=== PATIENT | male | born 1975 | race Two or more races ===

== ENCOUNTER 2016-12-16 15:26 | Emergency (ER) | payer OTHER ==
[2016-12-16] MEDS ORDERED: HYDROcodone/ACETAMIN 5-325 MG* 1 TAB PO ONE (18:12)
--- NOTE | 2016-12-16 18:48 | RAD ---
INDICATION: Left knee pain after a fall COMPARISON: None TECHNIQUE: 3 view radiograph of the left knee. The sunrise view was not acquired because the patient cannot bend his knee. FINDINGS: The visualized bones are well-corticated and properly aligned. The joint spaces are properly maintained. There is a moderate joint effusion. There is no acute fracture, dislocation or other focal bony abnormality. IMPRESSION: Moderate left-sided joint effusion without radiographically apparent fracture or dislocation. If the patient's symptoms persist, follow-up imaging is recommended.
--- NOTE | 2016-12-16 19:57 | ED ---
Farrukh Milan Rebecca, scribed for Agnieszka Kellogg MD on 12/16/16 at 1811 . Lower Extremity - HPI Summary HPI Summary: Pt is a 41 y/o M BIBA from [facility] who presents to ED c /o L knee pain. Pain began suddenly 2 days ago, on Friday night, and has been constant since onset. Reports "it snapped sideways" and that he fell sideways on the knee, with pain beginning immediately upon impact. Pain is discrete to the L knee without radiation. Pain is currently severe, ranked 9/10 and characterized as sharp. Sx aggravated by movement, alleviated by nothing. Denies LOC. PMHx L knee injuries. - History of Current Complaint Chief Complaint: EDExtremityLower Stated Complaint: LT KNEE INJURY Time Seen by Provider: 12/16/16 18:03 Hx Obtained From: Patient Mechanism Of Injury: Fall From A Standing Position Onset of Pain: Immediate, Prior to Arrival Onset/Duration: Still Present - 2 days Severity Initially: Moderate Severity Currently: Severe Pain Intensity: 9 Pain Scale Used: 0-10 Numeric Timing: Constant Location: Is Discrete @ - L knee Character Of Pain: Sharp Associated Signs And Symptoms: Positive: Negative Aggravating Factor(s): Movement Alleviating Factor(s): Nothing Able to Bear Weight: Yes PMH/Surg Hx/FS Hx/Imm Hx Endocrine/Hematology History: Denies: Hx Diabetes Musculoskeletal History: Reports: Other Musculoskeletal History - L knee injuries Neurological History: Reports: Hx Migraine Infectious Disease History: No Infectious Disease History: Denies: Traveled Outside the [place] in Last 30 Days - Family History Known Family History: Negative: Cardiac Disease, Hypertension, Diabetes - Social History Alcohol Use: None Hx Substance Use: No Substance Use Type: Reports: None Hx Tobacco Use: No Smoking Status (MU): Never Smoked Tobacco Review of Systems Positive: Arthralgia - L kne epain s/p fall Neurological: Other - Denies LOC All Other Systems Reviewed And Are Negative: Yes Physical Exam - Summary Physical Exam Summary: General: Well appearing, no pain distress Skin: Warm, Skin Color Reflects Adequate Perfusion, Dry Eyes: EOMI, GISSELL ENT: Pharynx normal, TMs normal Neck: Supple, nontender Respiratory: CTA, breath sounds present, no rhonchi, no wheezes, no rales Cardiovascular: RRR, no murmur, no rub, no gallop Abdomen: Soft, nontender, Non-distended, no guarding, no rebound Bowel: Present Musculoskeletal:No swelling, no edema. Pain in the L knee with ROM. Neuro: Sensory/motor intact, A&Ox3, CN intact 2-12 Psych: Affect/mood appropriate Triage Information Reviewed: Yes Vital Signs On Initial Exam: Initial Vitals Temp Pulse Resp BP Pulse Ox 97.9 F 60 16 134/86 99 12/16/16 15:37 12/16/16 15:37 12/16/16 15:37 12/16/16 15:37 12/16/16 15:37 Vital Signs Reviewed: Yes Diagnostics - Vital Signs Vital Signs Temp Pulse Resp BP Pulse Ox 12/16/16 17:08 97.9 F 55 20 135/90 100 12/16/16 15:39 98.4 F 70 20 134/86 99 12/16/16 15:37 97.9 F 60 16 134/86 99 - Laboratory Lab Statement: Any lab studies that have been ordered have been reviewed, and results considered in the medical decision making process. - Radiology Knee XR Radiology Interpretation Completed By: Radiologist - Moderate left-sided joint effusion without radiographically apparent fracture or dislocation. If the patient's symptoms persist, follow-up imaging is recommended. Re-Evaluation - Re-Evaluation Second Eval Re-Evaluation Time: 20:00 Lower Extremity Course/Dx - Course Course Of Treatment: neg films likely ligamentous strain, pt can't go back to 5 points with a knee immobilizer or with crutches but does need ortho followup and pain meds - Diagnoses Provider Diagnoses: Injury of knee, ligament Discharge - Discharge Plan Condition: Stable Disposition: HOME The documentation as recorded by the Farrukh hdez Rebecca accurately reflects the service I personally performed and the decisions made by me, Agnieszka Kellogg MD.
[2016-12-16 20:39] VITALS: BP 145/70
== END 2016-12-16 20:27 | disposition home or self-care (01) ==
LOC: ED 15:26
DX: S76.102A Unspecified injury of left quadriceps muscle, fascia and tendon, initial encounter (principal); W19.XXXA Unspecified fall, initial encounter; Y93.9 Activity, unspecified; Y92.9 Unspecified place or not applicable
CPT/HCPCS: 99282

== ENCOUNTER 2017-07-24 07:30 | Day surgery (SDC) | payer OTHER ==
[~2017-07-24 07:30] MED LIST: Buffered Lidocaine 0.9% SYRIN* 5 ML/SYR SYRINGE INTRADERM ONE; DiMENhydriNATE IV* 50 MG/ML VIAL IV PUSH PRN; Famotidine IV* 10 MG/ML 2 ML (20 mg) IV ONE; Morphine INJ* 2 MG/ML 1 ML CARPUJECT IV PRN; PROCHLORPERAZINE INJ 5 MG/ML 2 ML VIAL IV PRN; Scopolamine 1.5 mg* PATCH TRANSDERM PRN; fentaNYL* 50 MCG/ML 2 ML VIAL (100 MCG VIAL) IV PRN; oxyCODONE/Acetamin 5/325 MG* TAB PO PRN
[2017-07-24] MEDS ORDERED: Famotidine IV* 10 MG/ML 2 ML (20 mg) ONE (08:47)
[2017-07-24] MEDS ORDERED: ceFAZolin 2 GM PREMIX (*) 2 GM/50 ML BAG IVPB ONE (08:47)
[2017-07-24] MEDS ORDERED: fentaNYL* 50 MCG/ML 2 ML VIAL (100 MCG VIAL) ONE ×2 (09:51→13:05)
[2017-07-24] MEDS ORDERED: KETAMINE HCL* 50 MG/ML 10 ML VIAL ONE (09:51)
[2017-07-24] MEDS ORDERED: Midazolam* 1 MG/ML 2 ML VIAL (2 MG) ONE (09:51)
[2017-07-24] MEDS ORDERED: Bupivacaine 0.25% SDV* 30 ML ONE (10:27)
[2017-07-24] MEDS ORDERED: Propofol* 10 MG/ML 20 ML BTL IV PUSH ONE (13:04)
[2017-07-24] MEDS ORDERED: Lidocaine 2% PF * 5 ML VIAL ONE (13:04)
[2017-07-24] MEDS ORDERED: Ketorolac INJ* 30 MG/ML 1 ML VIAL ONE (13:04)
[2017-07-24] MEDS ORDERED: Dexamethasone IV* 4 MG/ML 1 ML (4 MG) ONE (13:04)
[2017-07-24] MEDS ORDERED: Ondansetron INJ* 2 MG/ML VIAL ONE (13:04)
[2017-07-24] MEDS ORDERED: hydrALAZINE IV* 20 MG/ML VIAL ONE (13:36)
[2017-07-24 14:49] VITALS: BP 128/70
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
[2017-07-27] MEDS ORDERED: Scopolamine PATCH Remove* 1 NOTE MISC PATCH OFF ONE (06:13)
== END 2017-07-24 15:04 | disposition home or self-care (01) ==
LOC: OREAST 07:30
PROVIDERS: ATTEND Orthopaedic Surgery Hand Surgery
DX: S66.106A Unspecified injury of flexor muscle, fascia and tendon of right little finger at wrist and hand level, initial encounter (principal); Z87.891 Personal history of nicotine dependence; E78.5 Hyperlipidemia, unspecified; K21.9 Gastro-esophageal reflux disease without esophagitis; X50.0XXA Overexertion from strenuous movement or load, initial encounter; Y92.9 Unspecified place or not applicable
CPT/HCPCS: 88304; J0360; J0690; J1100; J1885; J2250; J2405; J2704; J3010

== ENCOUNTER → 2017-11-07 10:47 | Day surgery (SDC) | payer OTHER ==
[~2017-11-07 10:47] MED LIST changes: +Atropine 1MG/ML INJ* 1 ML VIAL ONE; +Buffered Lidocaine 0.9% SYRIN* 5 ML/SYR SYRINGE ONE; +Bupivacaine 0.25% SDV* 30 ML ONE; +Bupivacaine-MPF SPINAL* 7.5 MG/2 ML AMP ONE; +Dexamethasone IV* 4 MG/ML 1 ML (4 MG) ONE; -DiMENhydriNATE IV* 50 MG/ML VIAL IV PUSH PRN; +EPINEPHRINE 1 MG/ML 1 ML VIAL ONE; -Famotidine IV* 10 MG/ML 2 ML (20 mg) IV ONE; +Ketorolac INJ* 30 MG/ML 1 ML VIAL ONE; +Lidocaine 2% PF * 5 ML VIAL ONE; +Metoclopramide TAB* 10 MG ONE; +Metoclopramide TAB* 10 MG PO ONE; +Midazolam* 1 MG/ML 5 ML VIAL (5 MG) ONE; -Morphine INJ* 2 MG/ML 1 ML CARPUJECT IV PRN; +Naloxone* 0.4 MG/ML 1 ML VIAL IV PRN; +Ondansetron INJ* 2 MG/ML VIAL IV PRN; -PROCHLORPERAZINE INJ 5 MG/ML 2 ML VIAL IV PRN; +Propofol* 10 MG/ML 20 ML BTL IV PUSH ONE; -Scopolamine 1.5 mg* PATCH TRANSDERM PRN; +ceFAZolin 2 GM PREMIX (*) 2 GM/50 ML BAG IVPB ONE; +fentaNYL* 50 MCG/ML 2 ML VIAL (100 MCG VIAL) ONE; +methylPREDNISolone ACETATE 40* 40 MG/ML 1 ML VIAL ONE; +methylPREDNISolone ACETATE 80* 80 MG/ML 1 ML VIAL ONE
[2017-11-07 20:11] VITALS: BP 136/79
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
== END ==
LOC: OR 10:47
PROVIDERS: ATTEND Orthopaedic Surgery
DX: M23.92 Unspecified internal derangement of left knee (principal); M22.42 Chondromalacia patellae, left knee; M23.42 Loose body in knee, left knee; J45.909 Unspecified asthma, uncomplicated; I10 Essential (primary) hypertension; K21.9 Gastro-esophageal reflux disease without esophagitis
CPT/HCPCS: A9270-GY; J0461; J0690; J1030; J1040; J1100; J1885; J2250; J2704; J3010